=== PATIENT | female | born 1975 | race Caucasian/White ===

== ENCOUNTER 2021-05-10 17:46 | Emergency (ER) | payer OTHER, SELFPAY ==
--- NOTE | ~2021-05-10 | XR_ITS ---
EXAMINATION: XR chest 2V EXAM DATE: 05/10/2021 18:06 INDICATION: Cough, natanael, covid +, hx copd,asthma,bronch, pneumonia. TECHNIQUE: Frontal and lateral projections of the chest obtained and reviewed. There is no prior jimmy dy for comparison. FINDINGS: The lungs are hyperinflated which can be seen with chronic obstructive pulmonary disease ( a clinical diagnosis of functional impairment), but is not diagnostic of it. The lungs are clear. Th ere are no pleural effusions. The cardiomediastinal silhouette is within normal limits. There is no pneumothorax suspected. The bones and soft tissues are unremarkable. IMPRESSION: 1. No acute cardiopulmonary findings. 2. Hyperinflation. Reviewed, dictated and finalized at location A. L APPLIANCE ASSEMBLY SUPERVISOR
[2021-05-10 17:56] VITALS: BP 166/83; PULSE 106; RESP 20; TEMP 37.6; O2SAT 89
--- NOTE | 2021-05-10 17:59 | ED.URI ---
HPI - URI/Sore Throat General Chief Complaint: Upper Respiratory Infection Stated Complaint: cough Time Seen by Provider: 05/10/21 18:00 Source: patient and RN notes reviewed Mode of arrival: ambulatory Limitations: no limitations History of Present Illness HPI Narrative: 46-year-old female presents to the [facility] with complaints of cough and shortness of breath. States that she was diagnosed with Covid on 04 May, symptoms started the day before. Had called her greenkeeper who called her in some dexamethasone, states that she really needs antibiotics. Discussed with patient antibiotic resistance, patient states that she has been told this multiple times but states that if she has pneumonia she needs an antibiotic which an x-ray was ordered Discussed her oxygen level. Patient states that her oxygen level is normally 86-92 due to her COPD. Has never been prescribed oxygen at home. Last time she used her nebulizer treatment was last night MD elicited complaint: cough Related Data Home Medications Medication Instructions Recorded Confirmed albuterol sulfate 2 puff INHALATION PRN PRN 05/10/21 05/10/21 dexamethasone 6 mg PO DAILY 05/10/21 05/10/21 ipratropium-albuterol [Combivent 2 puff INHALATION DAILY 05/10/21 05/10/21 Respimat] metoprolol succinate 25 mg PO DAILY 05/10/21 05/10/21 Allergies Allergy/AdvReac Type Severity Reaction Status Date / Time levofloxacin Allergy Mild Rash Verified 05/10/21 18:30 Penicillins Allergy Unknown Rash Verified 05/10/21 18:30 ENVIRONMENTAL ALLERGENS Allergy Unknown Other Uncoded 05/10/21 18:30 Review of Systems Review of Systems: All systems reviewed & are unremarkable except as noted in HPI and below Constitutional: Constitutional: Reports no additional constitutional complaints, Denies chills, Denies fever(s) and Denies headache(s) Eyes: Eyes: Reports no additional eye complaints ENT: Reports system reviewed and no additional complaints, except as documented, Denies vertigo, Denies dizziness, Denies headache(s), Denies nasal congestion and Denies sore throat Cardiovascular: Cardiovascular: Reports no additional cardiovascular complaints, Denies chest pain, Denies syncope, Denies rapid heart rate and Denies dyspnea Respiratory: Respiratory: Reports as per HPI, Reports cough, Reports dyspnea and Denies wheezing Gastrointestinal: Gastrointestinal: Reports no additional gastrointestinal complaints, Denies abdominal pain, Denies diarrhea, Denies nausea and Denies vomiting Musculoskeletal: Musculoskeletal: Reports no additional musculoskeletal complaints and Denies numbness Integumentary/Breasts: Skin/Breast: Reports system reviewed and no additional complaints, except as docu Neurologic: Reports system reviewed and no additional complaints, except as documented, Denies vertigo, Denies dizziness, Denies syncope, Denies headache(s), Denies focal weakness and Denies numbness Psychiatric: Psychiatric: Reports no additional psychiatric complaints Allergic/Immunologic: Allergic/Immunologic: Reports no additional allergic/immunologic complaints and Denies wheezing PMFSH Past Medical History Medical History (Updated 05/11/21 @ 07:59 by Carmen Shane) COPD (chronic obstructive pulmonary disease) Hypertension Surgical History Surgical History (Updated 05/11/21 @ 07:57 by Carmen Shane) No pertinent past surgical history Social History Social History (Updated 05/11/21 @ 07:57 by Carmen Shane) Living arrangements: with family Gender identity (if verbalized by the patient): Female Comments At the time of my signature, I reviewed and agree with the nursing past medical, surgical, social, and family history. There is no relevant family history pertinent to the patient complaint. Exam Const: General: healthy appearing, no acute distress and alert Nutritional Appearance: well nourished Orientation/consciousness: patient oriented x3 Limitations: no limitations JM: Lico
[2021-05-10] MEDS: ALBUTEROL SULFATE NEB 2.5 MG/3 ML INH INHALATION (18:56)
[2021-05-10] MEDS: IPRATROPIUM BR 0.02% INH SOLN 0.5 MG/2.5 ML VIAL INHALATION (18:57)
== END 2021-05-10 19:45 | disposition home or self-care (01) ==
PROVIDERS: Emergency Provider Nurse Practitioner
DX: J06.9 Acute upper respiratory infection, unspecified (principal); J44.9 Chronic obstructive pulmonary disease, unspecified; R05.9 Cough, unspecified; U09.9 Post COVID-19 condition, unspecified; I10 Essential (primary) hypertension
CPT/HCPCS: 71046; 94640; 99213; G0463

== ENCOUNTER 2022-04-03 17:30 | Emergency (ER) | payer OTHER, SELFPAY ==
--- NOTE | ~2022-04-03 | XR_ITS ---
EXAMINATION: XR chest 2V 04/03/2022 18:29 INDICATION: Cough PROCEDURE: 2 view chest COMPARISON: 05/10/2021 FINDINGS: The lungs are clear. The cardiomediastinal silhouette is within normal limits. There are no pleural effusions. There is no pneumothorax suspected. IMPRESSION: 1: NO ACUTE CARDIOPULMONARY DISEASE. Reviewed, dictated and finalized at location A. CLIENT BANKING SERVICES CLERK
[2022-04-03 17:40] VITALS: BP 148/86; PULSE 96; RESP 18; TEMP 36.8; O2SAT 99
--- NOTE | 2022-04-03 18:14 | ED.URI ---
HPI - URI/Sore Throat General Chief Complaint: Upper Respiratory Infection Stated Complaint: Sinus Time Seen by Provider: 04/03/22 18:10 Source: patient and RN notes reviewed Mode of arrival: ambulatory Limitations: no limitations History of Present Illness HPI Narrative: 47 year female presents with for ongoing chronic sinus infection. Reports taking a Z-Tereso without relief. Reports purulence sinus discharge, sinus pain and pressure. Reports taking a negative COVID test last week at home. MD elicited complaint: nasal congestion and sinus pain Related Data Home Medications Medication Instructions Recorded Confirmed albuterol sulfate 90 mcg/actuation 1 inh inhalation DIRECTED 04/03/22 04/03/22 aerosol inhaler ipratropium bromide 17 1 inh inhalation DIRECTED 04/03/22 04/03/22 mcg/actuation HFA aerosol inhaler (Atrovent HFA) metoprolol succinate 25 mg 25 mg PO DAILY 04/03/22 04/03/22 tablet,extended release 24 hr multivit with minerals-iron 18 1 tablet PO DAILY 04/03/22 04/03/22 mg-folic ac 400 mcg-vit K 25 mcg tablet (Adults Multivitamin) Allergies Allergy/AdvReac Type Severity Reaction Status Date / Time levofloxacin Allergy Mild Rash Verified 04/03/22 18:18 Penicillins Allergy Unknown Rash Verified 04/03/22 18:18 ENVIRONMENTAL ALLERGENS Allergy Unknown Other Uncoded 04/03/22 18:18 Review of Systems Review of Systems: CONSTITUTIONAL: Reports malaise. Denies chills, sweats, or fever. EYES: Denies visual changes, redness, or discharge. ENT: Reports rhinorrhea, congestion, sinus pain, otalgia. Denies sore throat. CARDIOVASCULAR: Denies chest pain, palpitations, or edema. RESPIRATORY: Reports cough. Denies dyspnea. GASTROINTESTINAL: Denies abdominal pain, nausea, vomiting, diarrhea SKIN: Denies rash or itching. MUSCULOSKELETAL: Denies myalgia. NEUROLOGIC: Reports headache. All systems reviewed & are unremarkable except as noted in HPI and below PMFSH Past Medical History Medical History (Updated 04/03/22 @ 18:49 by Carmen Cilne NP) COPD (chronic obstructive pulmonary disease) Hypertension Surgical History Surgical History (Updated 05/11/21 @ 07:57 by Carmen Shane APRN) No pertinent past surgical history Social History Social History (Updated 05/11/21 @ 07:57 by Carmen Shane APRN) Gender identity (if verbalized by the patient): Female Comments At time of signature, agree with nursing past medical, surgical, social and family history. There is no relevant family history pertinent to the presenting complaint Exam Narrative: GENERAL: Well-appearing, well-nourished, and in no acute distress. HEAD: Normocephalic EYES: PERRLA, conjunctivae clear ENT: Nares clear, turbinates edematous and erythematous, really discharge, sinus tenderness. Mucous membranes moist. TM pearly gutierrez with dull light reflex bilaterally; no tragal tenderness. Oropharynx not erythematous without lesions. Tonsils not enlarged and without exudate, no drooling, no hoarseness, no trismus, uvula midline. NECK: Supple. No lymphadenopathy CHEST: Clear to auscultation, breath sounds equal. No wheezing, rhonchi, rales, or stridor. No respiratory distress, speaks in full sentences. HEART: Regular rate and rhythm. No murmur heard. SKIN: Warm, dry, no rash. NEURO: Alert and oriented x3. PSYCH: Normal mood and affect Course Course Emergency Course: Patient is aware of diagnosis, understands and agrees to treatment plan. Anticipatory guidance given. Patient agrees to follow-up as directed and is aware of reasons to seek care at the emergency department. Portions of this record may have been created with voice recognition software Level of Care: Express Care Visit Vital Signs Vital signs: Vital Signs Temperature 98.2 F 04/03/22 17:40 Pulse Rate 96 04/03/22 17:40 Respiratory Rate 18 04/03/22 17:40 Blood Pressure 148/86 H 04/03/22 17:40 Pulse Oximetry 99 04/03/22 17:40 Oxygen Delivery Room
== END 2022-04-03 18:54 | disposition home or self-care (01) ==
PROVIDERS: Emergency Provider Nurse Practitioner; PCP Internal Medicine Pulmonary Disease
DX: J01.90 Acute sinusitis, unspecified (principal); J44.9 Chronic obstructive pulmonary disease, unspecified; I10 Essential (primary) hypertension
CPT/HCPCS: 71046; 99213; G0463

== ENCOUNTER 2022-06-09 08:21 | Emergency (ER) | payer OTHER, SELFPAY ==
--- NOTE | ~2022-06-09 | XR_ITS ---
Left foot Technique: AP, oblique, and lateral views were obtained. Clinical History: Injury Findings: Small avulsion fracture seen, possibly involving the origin of the extensor digitorum brevi s muscle at the distal calcaneus. Suggestion of additional smaller than fracture from the dorsal aspe ct of the navicular on lateral view.. Joint spaces are preserved without erosive or degenerative duarte ge. Soft tissues are unremarkable. Impression: Probable small, acute avulsion fracture at the origin of the extensor digitorum brevis muscle at the distal calcaneus. Suggest additional small avulsion fracture from the dorsal navicular. Reviewed, dictated and finalized at location . ERY ASSEMBLER DRY CELL Impression: Probable small, acute avulsion fracture at the origin of the extensor digitorum brevis muscle at the distal calcaneus. Suggest additional small avulsion fracture from the dorsal navicular.
--- NOTE | ~2022-06-09 | XR_ITS ---
Left ankle Technique: AP, oblique, and lateral views were obtained. Clinical History: Injury Findings: No acute fracture or dislocation is seen. There is an expansile area at the distal tibial s haft, possibly representing chronic healed fracture deformity versus other probable benign finding. A nkle mortise and other visualized joint spaces are preserved. Soft tissues are otherwise unremarkabl e. Impression: No acute fracture or dislocation. Expansile area at the distal tibial shaft, which could reflect chronic, healed posttraumatic change, or possibly another underlying probable benign lesion. No definite aggressive imaging features are id entified. Correlate with any relevant clinical history. Reviewed, dictated and finalized at location . Impression: No acute fracture or dislocation. Expansile area at the distal tibial shaft, which could reflect chronic, healed posttraumatic change, or possibly another underlying probable benign lesion. No definite aggressive imaging features are identified. Correlate with any releva nt clinical history.
[2022-06-09 08:26] VITALS: BP 122/72; PULSE 86; RESP 16; TEMP 36.9; O2SAT 97
--- NOTE | 2022-06-09 08:41 | ED.LOWEXIN ---
HPI - Extremity Injury (Lower) General Chief Complaint: Extremity Injury, Lower Stated Complaint: Left Ankle Pain Time Seen by Provider: 06/09/22 08:48 Source: patient, RN notes reviewed and old records reviewed Mode of arrival: ambulatory Limitations: no limitations History of Present Illness HPI Narrative: [age] year presents to the [facility] with left lateral ankle and left foot pain since hyper extension of the ankle last night at a concert. Small amount of bruising and swelling noted to the lateral proximal foot. Patient has been taking Tylenol for her pain. States she cannot take any other medications cause it upsets her stomach. Did not fall, did not hit head. No pain in the knee or posterior leg. Positive pedal pulse. Sensation intact in all 5 toes with capillary refill 2 seconds MD complaint: ankle injury (Left) and foot injury Onset (ago): day(s) (1) Type of Injury: inversion Related Data Home Medications Medication Instructions Recorded Confirmed albuterol sulfate 90 mcg/actuation 1 inh inhalation DIRECTED 04/03/22 06/09/22 aerosol inhaler ipratropium bromide 17 1 inh inhalation DIRECTED 04/03/22 06/09/22 mcg/actuation HFA aerosol inhaler (Atrovent HFA) metoprolol succinate 25 mg 25 mg PO DAILY 04/03/22 06/09/22 tablet,extended release 24 hr multivit with minerals-iron 18 1 tablet PO DAILY 04/03/22 06/09/22 mg-folic ac 400 mcg-vit K 25 mcg tablet (Adults Multivitamin) Allergies Allergy/AdvReac Type Severity Reaction Status Date / Time levofloxacin Allergy Mild Rash Verified 06/09/22 08:59 Penicillins Allergy Unknown Rash Verified 06/09/22 08:59 ENVIRONMENTAL ALLERGENS Allergy Unknown Other Uncoded 06/09/22 08:59 Review of Systems Review of Systems: All systems reviewed & are unremarkable except as noted in HPI and below Constitutional: Constitutional: Reports no additional constitutional complaints Eyes: Eyes: Reports no additional eye complaints ENT: Reports system reviewed and no additional complaints, except as documented Cardiovascular: Cardiovascular: Reports no additional cardiovascular complaints, Denies chest pain and Denies dyspnea Respiratory: Respiratory: Reports no additional respiratory complaints, Denies chest congestion, Denies cough and Denies dyspnea Gastrointestinal: Gastrointestinal: Reports no additional gastrointestinal complaints, Denies abdominal pain, Denies nausea and Denies vomiting Musculoskeletal: Musculoskeletal: Reports as per HPI, Reports arthralgias and Reports joint swelling Integumentary/Breasts: Skin/Breast: Reports system reviewed and no additional complaints, except as docu Neurologic: Reports system reviewed and no additional complaints, except as documented Psychiatric: Psychiatric: Reports no additional psychiatric complaints Allergic/Immunologic: Allergic/Immunologic: Reports no additional allergic/immunologic complaints PMFSH Past Medical History Medical History COPD (chronic obstructive pulmonary disease) Hypertension Surgical History Surgical History No pertinent past surgical history Social History Social History Living arrangements: with family Gender identity (if verbalized by the patient): Female Comments At the time of my signature, I reviewed and agree with the nursing past medical, surgical, social, and family history. There is no relevant family history pertinent to the patient complaint. Exam Const: General: cooperative, healthy appearing, comfortable, no acute distress, well developed, alert and well nourished Nutritional Appearance: well nourished Orientation/consciousness: patient oriented x3 Limitations: no limitations HENMT: Head: normal to inspection Ears: hearing grossly normal bilaterally and external ears normal Face/Nose/Sinu
--- NOTE | 2022-06-09 10:03 | PC.NURSE ---
Reviewed crutch teaching and pt demonstrated appropriate use prior to discharge.
== END 2022-06-09 10:06 | disposition home or self-care (01) ==
PROVIDERS: Emergency Provider Nurse Practitioner; PCP Internal Medicine Pulmonary Disease
DX: S92.002A Unspecified fracture of left calcaneus, initial encounter for closed fracture (principal); S92.252A Displaced fracture of navicular [scaphoid] of left foot, initial encounter for closed fracture; X50.9XXA Other and unspecified overexertion or strenuous movements or postures, initial encounter; J44.9 Chronic obstructive pulmonary disease, unspecified; I10 Essential (primary) hypertension
CPT/HCPCS: 29515; 73610; 73630; 99213; 99214; G0463

== ENCOUNTER 2023-04-30 14:01 | Emergency (ER) | payer OTHER, SELFPAY ==
--- NOTE | ~2023-04-30 | XR_ITS ---
EXAMINATION: XR chest 2V DATE: 04/30/2023 15:23 INDICATION: Cough TECHNIQUE: PA and lateral views of the chest were obtained. COMPARISON: Chest radiograph dated 04/03/2022 and 05/05/2021 FINDINGS: There is increased lucency and some architectural distortion in the bilateral upper lung zones consis tent with reported history of COPD. Stable appearance of mild predominantly linear opacities at the anterior left lower lung zone most likely either atelectasis/scarring or related to a small left para cardial fat pad. No new airspace opacities, pulmonary edema, pleural effusion or pneumothorax. Small calcified nodules projecting over the right lower lung zone, greater within the long or right breast. No new airspace opacities, pulmonary edema, pleural effusion or pneumothorax. The cardiomediastinal silhouette is normal. Moderate thoracic spondylosis. IMPRESSION: 1. Hyperexpansion of lungs consistent with known COPD. No acute cardiopulmonary disease. 2. Stable appearance of chronic mild predominantly linear opacities in the anterior left lower lung z one most likely atelectasis/scarring and small left paracardial fat pad. Reviewed, dictated and finalized at location A. NICAL SERVICES ANALYST IMPRESSION: 1. Hyperexpansion of lungs consistent with known COPD. No acute cardiopulmonary disease. 2. Stable appearance of chronic mild predominantly linear opacities in the ante rior left lower lung zone most likely atelectasis/scarring and small left parac ardial fat pad.
[2023-04-30 14:10] VITALS: BP 151/82; PULSE 90; RESP 16; TEMP 36.8; O2SAT 98
--- NOTE | 2023-04-30 15:04 | ED.URI ---
HPI - URI/Sore Throat General Chief Complaint: Upper Respiratory Infection Stated Complaint: Sinus Time Seen by Provider: 04/30/23 15:04 Source: patient, RN notes reviewed and old records reviewed Mode of arrival: ambulatory Limitations: no limitations History of Present Illness HPI Narrative: 48-year-old female presents to the [facility] with complaints of sinus congestion, cough, shortness of breath this got worse over the last 2 days. Has been taking Tylenol Sinus. Treatments prior to arrival: cold medicine Related Data Home Medications Medication Instructions Recorded Confirmed acetaminophen 500 mg tablet 500 mg PO Q6H PRN Pain, Mild 06/11/22 04/30/23 (Tylenol Extra Strength) albuterol sulfate 90 mcg/actuation 2 puff inhalation DIRECTED 04/30/23 04/30/23 aerosol inhaler ipratropium 0.5 mg-albuterol 3 mg 3 ml inhalation DIRECTED 04/30/23 04/30/23 (2.5 mg base)/3 mL nebulization soln ipratropium 20 mcg-albuterol 100 1 puff inhalation DIRECTED 04/30/23 04/30/23 mcg/actuation mist for inhalation (Combivent Respimat) metoprolol succinate 25 mg 25 mg PO DAILY 04/30/23 04/30/23 tablet,extended release 24 hr Allergies Allergy/AdvReac Type Severity Reaction Status Date / Time tree nut Allergy Severe Swelling Verified 07/21/22 14:07 tree and shrub pollen Allergy Intermediate congestion, Verified 07/21/22 14:07 sneezing levofloxacin Allergy Mild Rash Verified 07/21/22 14:07 Penicillins Allergy Unknown Rash Verified 07/21/22 14:07 Review of Systems Review of Systems: All systems reviewed & are unremarkable except as noted in HPI and below Constitutional: Constitutional: Reports no additional constitutional complaints Eyes: Eyes: Reports no additional eye complaints ENT: Reports as per HPI and Reports sinus pain Cardiovascular: Cardiovascular: Reports no additional cardiovascular complaints, Denies chest pain and Denies dyspnea Respiratory: Respiratory: Reports as per HPI, Denies chest congestion, Reports cough and Reports dyspnea Gastrointestinal: Gastrointestinal: Reports no additional gastrointestinal complaints, Denies abdominal pain, Denies nausea and Denies vomiting Musculoskeletal: Musculoskeletal: Reports no additional musculoskeletal complaints Integumentary/Breasts: Skin/Breast: Reports system reviewed and no additional complaints, except as docu Neurologic: Reports system reviewed and no additional complaints, except as documented Psychiatric: Psychiatric: Reports no additional psychiatric complaints Allergic/Immunologic: Allergic/Immunologic: Reports no additional allergic/immunologic complaints PMFSH Past Medical History Medical History COPD (chronic obstructive pulmonary disease) Hypertension Surgical History Surgical History History of x3 History of D&C Family History Family History Mother Acute myocardial infarction Asthma Father Hypertension COPD (chronic obstructive pulmonary disease) Grandparent Cancer Social History Social History Smoking packs per day: 1 Smoking cigarettes per day: 20.0 Smoking status: Current every day smoker Alcohol intake: never Substance use: never Living arrangements: with family Occupation/Education: occupation 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 There is no relevant family history pertinent to the patient complaint. Exam Const: General: cooperative, healthy appearing, comfortable, no acute distress, well developed, alert and well nourished Nutritional Appearan
[2023-04-30] MEDS: IPRATROPIUM BR 0.02% INH SOLN 0.5 MG/2.5 ML VIAL INHALATION (15:23)
[2023-04-30] MEDS: ALBUTEROL SULFATE NEB 2.5 MG/3 ML INH INHALATION (15:23)
== END 2023-04-30 16:05 | disposition home or self-care (01) ==
PROVIDERS: Emergency Provider Nurse Practitioner; PCP Internal Medicine Pulmonary Disease
DX: J44.1 Chronic obstructive pulmonary disease with (acute) exacerbation (principal); I10 Essential (primary) hypertension; J44.9 Chronic obstructive pulmonary disease, unspecified; F17.210 Nicotine dependence, cigarettes, uncomplicated; Z79.899 Other long term (current) drug therapy; Z76.0 Encounter for issue of repeat prescription
CPT/HCPCS: 71046; 87081; 87880; 99213; G0463